=== PATIENT | female | born 1930 | race Caucasian/White ===

== ENCOUNTER 2016-11-10 17:26 | Inpatient (IN) | payer MEDICARE, OTHER ==
[~2016-11-10] VITALS: Ht 172.7 cm; Wt 54.4 kg
[2016-11-10 18:08] LABS: HEMOGLOBIN 13.4 gm/dl (12.3-15.3); RED BLOOD COUNT 4.59 M/UL (4.00-5.10); WHITE BLOOD COUNT 8.5 K/UL (4.5-11.0)
[2016-11-10 18:21] LABS: BUN/CREATININE RATIO 20 (0-10)
[2016-11-11 07:19] LABS: BUN/CREATININE RATIO 15 (0-10)
[2016-11-11 10:57] LABS: WHITE BLOOD COUNT 6.5 K/UL (4.5-11.0)
[2016-11-11 11:01] LABS: HEMOGLOBIN 11.1 gm/dl (12.3-15.3); RED BLOOD COUNT 3.85 M/UL (4.00-5.10)
[2016-11-11 11:21] LABS: BUN/CREATININE RATIO 20 (0-10)
[2016-11-13 00:08] LABS: HEMOGLOBIN 9.2 gm/dl (12.3-15.3)
[2016-11-13 00:17] LABS: BUN/CREATININE RATIO 28 (0-10); RED BLOOD COUNT 3.2 M/UL (4.00-5.10)
[2016-11-13 03:37] LABS: HEMOGLOBIN 10.1 gm/dl (12.3-15.3); WHITE BLOOD COUNT 8.2 K/UL (4.5-11.0)
[2016-11-13 03:38] LABS: RED BLOOD COUNT 3.56 M/UL (4.00-5.10)
[2016-11-13 03:50] LABS: BUN/CREATININE RATIO 32 (0-10)
[2016-11-14 04:33] LABS: HEMOGLOBIN 8.3 gm/dl (12.3-15.3); WHITE BLOOD COUNT 6.9 K/UL (4.5-11.0)
[2016-11-14 04:36] LABS: RED BLOOD COUNT 2.89 M/UL (4.00-5.10)
[2016-11-14 04:56] LABS: BUN/CREATININE RATIO 45 (0-10)
[2016-11-15 04:36] LABS: HEMOGLOBIN 8.1 gm/dl (12.3-15.3); RED BLOOD COUNT 2.83 M/UL (4.00-5.10); WHITE BLOOD COUNT 5.7 K/UL (4.5-11.0)
[2016-11-15 05:10] LABS: BUN/CREATININE RATIO 48 (0-10)
[2016-11-16 04:02] LABS: WHITE BLOOD COUNT 6.8 K/UL (4.5-11.0)
[2016-11-16 04:06] LABS: RED BLOOD COUNT 3.16 M/UL (4.00-5.10)
[2016-11-17] MEDS ORDERED: CEFTIN250 MG/5 M PO (11:31)
[2016-11-17] MEDS ORDERED: GLUCERNA237 ML PO (11:32)
[2016-11-17] MEDS ORDERED: LANOXIN TAB 00.25 MG PO (11:33)
[2016-11-17] MEDS ORDERED: LOPRESSOR 25 MG25 MG PO (11:34)
[2016-11-17] MEDS ORDERED: LOVENOX SY30 MG/0.3 SQ (11:39)
[2016-11-17] MEDS ORDERED: NORCO 7.5-3251 EACH PO (11:40)
== END 2016-11-17 14:30 | DRG 469 ==
LOC: ER1 17:26 → ZEROF 23:12 → PROG CARE 23:12
PROVIDERS: Emergency Medicine; Internal Medicine; Orthopaedic Surgery; Student in an Organized Health Care Education/Training Program; ADMIT Internal Medicine
PROC: 0SRR01A Replacement of Right Hip Joint, Femoral Surface with Metal Synthetic Substitute, Uncemented, Open Approach (ICD-10-PCS; principal; 2016-11-12 09:30)
DX: S72.011A Unspecified intracapsular fracture of right femur, initial encounter for closed fracture (principal); J18.9 Pneumonia, unspecified organism; J96.01 Acute respiratory failure with hypoxia; D62 Acute posthemorrhagic anemia; J90 Pleural effusion, not elsewhere classified; W01.0XXA Fall on same level from slipping, tripping and stumbling without subsequent striking against object, initial encounter; Y93.H2 Activity, gardening and landscaping; Y92.007 Garden or yard of unspecified non-institutional (private) residence as the place of occurrence of the external cause; I48.0 Paroxysmal atrial fibrillation; J44.9 Chronic obstructive pulmonary disease, unspecified; E11.9 Type 2 diabetes mellitus without complications; I71.4 Abdominal aortic aneurysm, without rupture; I95.2 Hypotension due to drugs; T50.905A Adverse effect of unspecified drugs, medicaments and biological substances, initial encounter; I27.2 Other secondary pulmonary hypertension; I08.2 Rheumatic disorders of both aortic and tricuspid valves; Z87.891 Personal history of nicotine dependence; Z82.49 Family history of ischemic heart disease and other diseases of the circulatory system
CPT/HCPCS: ECHO; 36415; 36600; 70450; 71010; 72125; 72170; 73502; 80048; 80053; 81001; 82550; 82553; 82607; 82746; 82803; 82962; 83036; 83540; 83735; 83874; 83880; 84443; 84484; 85025; 85027; 85610; 85730; 86850; 86900; 86901; 86920; 87040; 87086; 92610; 93005; 93306; 94640; 94664; 96374; 96375; 96376; 97110; 97116; 97530; 97535; 99285; C1776; J0456; J0696; J1160; J1644; J1650; J1815; J1885; J2270; J2370; J2405; J2550; J7030; J7050; J7120; Q9963